=== PATIENT | female | born 1985 | race Caucasian/White ===

== ENCOUNTER 2018-08-29 16:28 | Outpatient (CLI) | payer MEDICARE, MEDICAID ==
[~2018-08-29] VITALS: Ht 167.6 cm; Wt 68.8 kg
[2018-08-29 16:46] VITALS: BP 102/64
[2018-08-29] MEDS ORDERED: ALBU83IN INH (16:52)
[2018-08-29] MEDS ORDERED: MECL1CHW PO (16:52)
[2018-08-29] MEDS ORDERED: SYMB16INH INH (16:52)
[2018-08-29 17:42] VITALS: BP 127/57
--- NOTE | 2018-08-30 15:27 | DSES ---
DATE OF ADMISSION: 08/29/2018 DATE OF DISCHARGE: 08/29/2018 HISTORY OF PRESENT ILLNESS: Patient is a 33-year-old female who is a 5, para 4-0-0-4, at 34 weeks and 4 days, with an estimated delivery date ([place]) of 10/06/2018, based off of a 13 week ultrasound. She has been seen in [facility] for care. Her has been complicated by lack of care. Patient is a poor care seeker. Patient's last visit in [place] was 08/27/2018. She presents to labor and delivery today with complaints of cramping that started at 2:30 p.m. and vaginal pain. She reports she only has cramping occasionally and only notes it when she feels her baby moving. Also with complaints of vaginal pain only when baby is moving. She denies having any contractions. She denies leaking of fluid and she also denies vaginal bleeding. She reports active movement. PAST MEDICAL HISTORY: 1. 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 2. She also has a history of asthma, which she is taking ProAir and Symbicort for. 3. Patient has a history of gastroesophageal reflux disease (GERD). 4. History of anxiety. 5. Tooth decay. PAST SURGICAL HISTORY: No surgical history noted. FAMILY HISTORY: Not contributory. SOCIAL HISTORY: Patient is a smoker and reports smoking about half a pack of cigarettes a day. She denies alcohol use or abuse and illicit drug use or abuse. HEART RATE: 130 beats per minutes, moderate variability, positive accelerations, no decelerations. Contractions are occasional. VAGINAL EXAMINATION: 1 cm dilated, 75% effaced, -2 station, mid position, soft, with no show. Patient was reassessed a few hours later and had no change in her cervix. ASSESSMENT: Intrauterine at 34 weeks and 4 days gestation, not in active labor, category 1 heart rate tracing. PLAN: Patient is to be discharged to home. She was given an abdominal binder and reports that her cramping and her pelvic pain are much better and reports that, since applying the abdominal binder, has not had any pelvic pain or cramping. Patient is to follow up with her routine OB care. Extensive education given to patient on labor signs and symptoms, leaking of fluid, vaginal bleeding, kick counts, abdominal trauma, fever. Patient verbalized understanding and discharged to home with her significant other.
== END 2018-08-29 19:45 | disposition home or self-care (01) ==
LOC: M LDO 16:28
PROVIDERS: ATTEND Advanced Practice Midwife
DX: O26.893 Other specified pregnancy related conditions, third trimester (principal); O47.03 False labor before 37 completed weeks of gestation, third trimester; O99.333 Smoking (tobacco) complicating pregnancy, third trimester; Z3A.34 34 weeks gestation of pregnancy